=== PATIENT | female | born 1990 | race Hispanic/Latino ===

== ENCOUNTER 2024-02-27 18:56 | Emergency (ER) | payer SELFPAY | END 2024-02-27 21:18 | disposition home or self-care (01) | LOC: MADERS 18:56 | DX: S31.114A Laceration without foreign body of abdominal wall, left lower quadrant without penetration into peritoneal cavity, initial encounter (principal); W25.XXXA Contact with sharp glass, initial encounter | CPT/HCPCS: 12001 ==